=== PATIENT | female | born 1985 | race Caucasian/White ===

== ENCOUNTER 2019-05-30 07:05 | Emergency (ER) | payer MEDICAID ==
[~2019-05-30] VITALS: Ht 154.9 cm; Wt 90.3 kg
[2019-05-30 07:22] VITALS: Ht 154.9 cm; Wt 90.3 kg
[2019-05-30 07:50] LABS: BASOPHIL % 0.3 % (0-2); RED CELL DISTRIBUTION WIDTH 13.7 % (11.5-14.5)
[2019-05-30 07:53] LABS: PLATELET COUNT 416 x10^3mcL (130-400)
[2019-05-30 08:05] LABS: microscopic required? YES; urine erythrocyte 1+ (NEGATIVE)
[2019-05-30 08:06] LABS: CALCIUM 8.7 mg/dL (8.5-10.1); CARBON DIOXIDE 28.6 mmol/L (21-32); CHLORIDE SERUM 102 mmol/L (98-107); CREATININE SERUM 0.9 mg/dL (0.6-1.0); GFR1 > 60 mL/min; GLUCOSE SERUM 95 mg/dL (74-106); POTASSIUM SERUM 4.1 mmol/L (3.5-5.1); SODIUM SERUM 138 mmol/L (136-145)
[2019-05-30 08:10] LABS: ALBUMIN 3.7 g/dL (3.4-5.0); ALKALINE PHOSPHATASE 85 U/L (46-116); ALT/SGPT 28 U/L (14-59); AMYLASE 76 U/L (25-115); AST/SGOT 16 U/L (15-37); BILIRUBIN TOTAL 0.2 mg/dL (0.20-1.00); LIPASE 100 IU/L (73-393); TOTAL PROTEIN, SERUM 8.1 g/dL (6.4-8.2)
[2019-05-30 10:12] VITALS: BP 111/72
== END 2019-05-30 10:12 | disposition home or self-care (01) ==
LOC: ED 07:05
PROVIDERS: Emergency Medicine
DX: K80.70 Calculus of gallbladder and bile duct without cholecystitis without obstruction (principal); N39.0 Urinary tract infection, site not specified
CPT/HCPCS: J0696; J1885; J7060; Q0162

== ENCOUNTER 2019-11-28 09:14 | Inpatient (IN) | payer MEDICAID ==
[~2019-11-28] VITALS: Ht 154.9 cm; Wt 90.9 kg
[2019-11-28 10:44] LABS: CALCIUM 9.3 mg/dL (8.5-10.1); CARBON DIOXIDE 27.7 mmol/L (21-32); CHLORIDE SERUM 97 mmol/L (98-107); CREATININE SERUM 1.1 mg/dL (0.6-1.0); GFR1 > 60 mL/min; GLUCOSE SERUM 117 mg/dL (74-106); POTASSIUM SERUM 3.6 mmol/L (3.5-5.1); SODIUM SERUM 135 mmol/L (136-145)
[2019-11-28 10:49] LABS: ALBUMIN 3.8 g/dL (3.4-5.0); ALKALINE PHOSPHATASE 89 U/L (46-116); ALT/SGPT 27 U/L (14-59); AST/SGOT 14 U/L (15-37); BILIRUBIN TOTAL 0.84 mg/dL (0.20-1.00); LIPASE 63 IU/L (73-393)
[2019-11-28 10:53] LABS: TOTAL PROTEIN, SERUM 9.2 g/dL (6.4-8.2)
[2019-11-28 11:26] LABS: PLATELET COUNT 355 x10^3mcL (130-400)
[2019-11-28 11:31] LABS: RED CELL DISTRIBUTION WIDTH 14.7 % (11.5-14.5)
[2019-11-28 12:13] LABS: BAND NEUTROPHIL 1 % (0-10); BASOPHIL 0 % (0-2); MONOCYTE 4 % (0-7); PLATELET MORPHOLOGY PLATELETS INCREASED; SEGMENTED NEUTROPHILS 92 % (37-75); rbc morphology (normal/abnorm) ABNORMAL (NORMAL)
[2019-11-28 15:00] LABS: UA SPECIFIC GRAVITY >=1.030 (1.005-1.035); microscopic required? YES; urine erythrocyte 3+ (NEGATIVE)
[2019-11-28 15:11] LABS: AMPHETAMINE QUAL UR NONE DETECTED (See below)
[2019-11-28 15:21] VITALS: BP 114/69
[2019-11-28 15:26] VITALS: Ht 154.9 cm; Wt 90.9 kg
[2019-11-28 20:27] VITALS: BP 102/63
[2019-11-29 06:12] VITALS: BP 100/63
[2019-11-29 07:05] LABS: PLATELET COUNT 300 x10^3mcL (130-400); RED CELL DISTRIBUTION WIDTH 13.9 % (11.5-14.5)
[2019-11-29 07:14] LABS: CALCIUM 8.5 mg/dL (8.5-10.1); CARBON DIOXIDE 27.1 mmol/L (21-32); CHLORIDE SERUM 101 mmol/L (98-107); CREATININE SERUM 0.9 mg/dL (0.6-1.0); GFR1 > 60 mL/min; GLUCOSE SERUM 115 mg/dL (74-106); MAGNESIUM 2.4 mg/dL (1.8-2.4); PHOSPHOROUS 2.6 mg/dL (2.5-4.9); POTASSIUM SERUM 3.4 mmol/L (3.5-5.1); SODIUM SERUM 138 mmol/L (136-145)
[2019-11-29 07:35] VITALS: BP 107/69
[2019-11-29 09:44] LABS: BASOPHIL % 0 % (0-2)
[2019-11-29 12:50] VITALS: BP 115/65
[2019-11-29 17:08] VITALS: BP 116/75
[2019-11-29 20:26] VITALS: BP 116/74
[2019-11-30 05:28] VITALS: BP 108/66
[2019-11-30 06:21] LABS: BASOPHIL % 0.4 % (0-2); PLATELET COUNT 307 x10^3mcL (130-400)
[2019-11-30 06:31] LABS: RED CELL DISTRIBUTION WIDTH 14.6 % (11.5-14.5)
[2019-11-30 06:47] LABS: CALCIUM 8.4 mg/dL (8.5-10.1); CARBON DIOXIDE 28.3 mmol/L (21-32); CHLORIDE SERUM 105 mmol/L (98-107); CREATININE SERUM 0.7 mg/dL (0.6-1.0); GFR1 > 60 mL/min; GLUCOSE SERUM 85 mg/dL (74-106); MAGNESIUM 2.5 mg/dL (1.8-2.4); POTASSIUM SERUM 4.2 mmol/L (3.5-5.1); SODIUM SERUM 140 mmol/L (136-145)
[2019-11-30 08:45] VITALS: BP 122/78
[2019-11-30 12:58] VITALS: BP 127/80
[2019-11-30 17:52] VITALS: BP 128/83
[2019-11-30 20:57] VITALS: BP 116/72
[2019-12-01 05:20] VITALS: BP 110/73
[2019-12-01 06:12] LABS: CALCIUM 8.3 mg/dL (8.5-10.1); CARBON DIOXIDE 27.2 mmol/L (21-32); CHLORIDE SERUM 105 mmol/L (98-107); CREATININE SERUM 0.7 mg/dL (0.6-1.0); GFR1 > 60 mL/min; GLUCOSE SERUM 84 mg/dL (74-106); MAGNESIUM 2.1 mg/dL (1.8-2.4); POTASSIUM SERUM 3.9 mmol/L (3.5-5.1); SODIUM SERUM 139 mmol/L (136-145)
[2019-12-01 06:15] LABS: BASOPHIL % 0.3 % (0-2); PLATELET COUNT 298 x10^3mcL (130-400)
[2019-12-01 06:36] LABS: RED CELL DISTRIBUTION WIDTH 14.8 % (11.5-14.5)
[2019-12-01 09:15] VITALS: BP 107/72
[2019-12-01] MEDS ORDERED: OPTIMUM AC500 Millio PO (09:41)
[2019-12-01] MEDS ORDERED: AUGMENTIN1 TA1 PO (09:41)
[2019-12-01 13:01] VITALS: BP 122/80
== END 2019-12-01 15:15 | disposition home or self-care (01) | DRG 720 ==
LOC: ED 09:14 → MU 13:37
PROVIDERS: Emergency Medicine; Internal Medicine; ADMIT Internal Medicine
DX: A41.9 Sepsis, unspecified organism (principal); N17.0 Acute kidney failure with tubular necrosis; K35.32 Acute appendicitis with perforation, localized peritonitis, and gangrene, without abscess; N39.0 Urinary tract infection, site not specified; E87.1 Hypo-osmolality and hyponatremia; E87.8 Other disorders of electrolyte and fluid balance, not elsewhere classified
CPT/HCPCS: G0378; J1885; J2270; J2405; J2543; J3490; J7030; Q0092